=== PATIENT | female | born 1950 | race Caucasian/White ===

== ENCOUNTER 2025-05-28 16:15 | Inpatient (IN) | payer BC, MEDICARE ==
[~2025-05-28 16:15] MED LIST: Iopamidol-370 76% 500 ML MDV (1 ML CHARGE) ONE
[2025-05-28 17:32] LABS: #Basophils 0.06 10x3/uL (0.0-0.2); #Eosinophils 0.06 10x3/uL (0.0-0.7); #Monocytes 0.51 10x3/uL (0.11-0.59); #Neutrophils 4.07 10x3/uL (1.40-6.50); %Basophils 1.0 % (0.0-1.0); %Eosinophils 1.0 % (0.0-10.0); %Lymphocytes 22.8 % (21.0-51.0); %Monocytes 8.4 % (0.0-10.0); %Neutrophils 66.6 % (42.0-75.0); Hematocrit 38.3 % (36.0-47.0); Hemoglobin 13.1 g/dL (12.0-16.0); Mean Corpuscular Hemoglobin 32.2 pg (27.0-31.0); Mean Corpuscular Volume 94.1 fL (78.0-98.0); Platelet Count 229 10x3/uL (130-400); Red Blood Cell (RBC) Count 4.07 mill/uL (4.20-5.40); White Blood Cell (WBC) Count 6.10 10x3/uL (4.8-10.8)
[2025-05-28 17:55] LABS: ALT (SGPT) 15 U/L (Less than 34); AST (SGOT) 20 U/L (11-34); Albumin 3.6 g/dL (3.1-4.5); Alkaline Phosphatase 75 U/L (40-110); Anion Gap 14 mmol/L (10-20); BUN (Urea Nitrogen) 18 mg/dL (9.8-20.1); Bilirubin, Total 0.4 mg/dL (0.3-1.2); Calc. Creatinine Clearance 0 mL/min (70-130); Calcium 9.0 mg/dL (7.8-10.44); Carbon Dioxide 23 mmol/L (23-31); Chloride 106 mmol/L (98-107); Globulin 2.8 g/dL (2.4-3.5); Glucose 87 mg/dL (83-110); Potassium 4.2 mmol/L (3.5-5.1); Sodium 139 mmol/L (136-145)
[2025-05-28 17:58] LABS: Troponin I Less than 0.010 ng/mL (< 0.028)
[2025-05-28 21:27] LABS: Bacteria/HPF None Seen HPF (None Seen); CAUTI Indications for Culture Pelvic or flank pain; Glucose, Urine (Dipstick) Normal (Negative); Leukocyte Negative Leu/uL (Negative); Protein, Urine (Dipstick) Negative (Neg-Trace); RBC/HPF 0-3 HPF (0-3); Specific Gravity, Urine Greater than 1.050 (1.002-1.036); WBC/HPF 0-3 HPF (0-3)
[2025-05-28 21:28] LABS: Urine Culture Reflex No No
[2025-05-28] MEDS ORDERED: Ketorolac Tromethamine 30 MG (1 mL) VIAL ONE (21:57)
[2025-05-28] MEDS ORDERED: Ondansetron PF 4 MG/2 ML Vial IVP PRN (23:33)
[2025-05-28] MEDS ORDERED: Calcium Carbonate 500 MG ChewTAB PO PRN (23:33)
[2025-05-28] MEDS ORDERED: Acetaminophen 325 MG TAB PO PRN (23:33)
[2025-05-29 04:51] LABS: #Basophils 0.06 10x3/uL (0.0-0.2); #Eosinophils 0.11 10x3/uL (0.0-0.7); #Monocytes 0.54 10x3/uL (0.11-0.59); #Neutrophils 3.38 10x3/uL (1.40-6.50); %Basophils 1.1 % (0.0-1.0); %Eosinophils 2.0 % (0.0-10.0); %Lymphocytes 24.8 % (21.0-51.0); %Monocytes 9.9 % (0.0-10.0); %Neutrophils 62.0 % (42.0-75.0); Hematocrit 35.7 % (36.0-47.0); Hemoglobin 12.0 g/dL (12.0-16.0); Mean Corpuscular Hemoglobin 31.6 pg (27.0-31.0); Mean Corpuscular Volume 93.9 fL (78.0-98.0); Platelet Count 212 10x3/uL (130-400); Red Blood Cell (RBC) Count 3.80 mill/uL (4.20-5.40); White Blood Cell (WBC) Count 5.45 10x3/uL (4.8-10.8)
[2025-05-29 05:09] LABS: ALT (SGPT) 11 U/L (Less than 34); AST (SGOT) 17 U/L (11-34); Albumin 3.2 g/dL (3.1-4.5); Alkaline Phosphatase 62 U/L (40-110); Anion Gap 10 mmol/L (10-20); BUN (Urea Nitrogen) 19 mg/dL (9.8-20.1); Bilirubin, Total 0.7 mg/dL (0.3-1.2); Calc. Creatinine Clearance 0 mL/min (70-130); Calcium 8.8 mg/dL (7.8-10.44); Carbon Dioxide 27 mmol/L (23-31); Chloride 105 mmol/L (98-107); Globulin 2.6 g/dL (2.4-3.5); Glucose 78 mg/dL (83-110); Potassium 4.1 mmol/L (3.5-5.1); Sodium 138 mmol/L (136-145)
[2025-05-29 07:27] VITALS: BMI 19.1
[2025-05-29] MEDS: Gabapentin 300 MG CAP PO SCH (07:45)
[2025-05-29 11:31] VITALS: BP 96/69; TEMP 98
[2025-05-29 13:26] LABS: RBC Count-Automated (BF) 1578 /cu.mm; WBC/Nucleated-Auto (BF) 2249 /cu.mm
[2025-05-29 13:33] LABS: Fluid, Triglycerides 20.0 mg/dL (Not Available); Pleural Fluid, Amylase 107.0 U/L (Not Available); Pleural Fluid, Glucose 83.0 mg/dL; Pleural Fluid, LDH 657.0 U/L (Not Available); Pleural Fluid, Protein 3.9 g/dL
[2025-05-29 13:54] LABS: BF Segmented Neutrophils 13 %; Cell Count Non Hematic 13 %
[2025-05-29 14:18] LABS: Fluid, pH - Pleural Fld Greater than 7.500 (7.60 - 7.66)
== END 2025-05-29 14:41 | disposition home or self-care (01) | DRG 845 ==
LOC: ERS 16:15 → 2NO 21:35
PROVIDERS: ADMIT Student in an Organized Health Care Education/Training Program; ATTEND Student in an Organized Health Care Education/Training Program
PROC: 0W9B3ZZ Drainage of Left Pleural Cavity, Percutaneous Approach (ICD-10-PCS; principal; 2025-05-28)
DX: C80.1 Malignant (primary) neoplasm, unspecified (principal); E78.5 Hyperlipidemia, unspecified; J91.0 Malignant pleural effusion; Z66 Do not resuscitate; Z86.711 Personal history of pulmonary embolism; Z87.440 Personal history of urinary (tract) infections; Z98.890 Other specified postprocedural states; Z79.899 Other long term (current) drug therapy
CPT/HCPCS: 36415; 36416; 71045; 71275; 80053; 81001; 82150; 82945; 83605; 83615; 83880; 83986; 84157; 84478; 84484; 85025; 85060; 87116; 87206; 88112; 88305; 88341; 88342; 89051; 93005; 96374; J1642; J1885; Q9967

== ENCOUNTER 2025-06-06 13:15 | Outpatient (CLI) | payer BC | END 2025-06-06 13:16 | disposition home or self-care (01) | LOC: RAD 13:15 | PROVIDERS: ATTEND Internal Medicine Critical Care Medicine | DX: R06.00 Dyspnea, unspecified (principal); J90 Pleural effusion, not elsewhere classified | CPT/HCPCS: 71046 ==

== ENCOUNTER 2025-06-06 16:19 | Outpatient (CLI) | payer BC | END 2025-06-06 16:20 | disposition home or self-care (01) | LOC: LABBT 16:19 | PROVIDERS: ATTEND Student in an Organized Health Care Education/Training Program | DX: Z01.812 Encounter for preprocedural laboratory examination (principal); J91.0 Malignant pleural effusion | CPT/HCPCS: 80053; 85610; 85730; 86850; 86900; 86901 ==

== ENCOUNTER 2025-06-08 05:58 | Observation (INO) | payer BC ==
[2025-06-06 16:39] VITALS: BMI 18.8
[2025-06-06 17:20] LABS: INR-International Normal Ratio 1.1; Prothrombin Time 13.8 sec (12.0-14.7)
[2025-06-06 17:21] LABS: PTT 36.0 sec (22.9-36.1)
[2025-06-06 17:48] LABS: ALT (SGPT) 9 U/L (Less than 34); AST (SGOT) 18 U/L (11-34); Albumin 3.5 g/dL (3.1-4.5); Alkaline Phosphatase 67 U/L (40-110); Anion Gap 19 mmol/L (10-20); BUN (Urea Nitrogen) 33 mg/dL (9.8-20.1); Bilirubin, Total 0.5 mg/dL (0.3-1.2); Calc. Creatinine Clearance 0 mL/min (70-130); Calcium 10.0 mg/dL (7.8-10.44); Carbon Dioxide 25 mmol/L (23-31); Chloride 97 mmol/L (98-107); Globulin 3.7 g/dL (2.4-3.5); Glucose 101 mg/dL (83-110); Potassium 5.3 mmol/L (3.5-5.1); Sodium 136 mmol/L (136-145)
[2025-06-08] MEDS ORDERED: CEFAZOLIN 2 GM VIAL ONE (07:18)
[2025-06-08] MEDS ORDERED: PROPOFOL 20 ML ONE (07:23)
[2025-06-08] MEDS ORDERED: fentaNYL PF 100 MCG/2 ML SYRINGE ONE (07:24)
[2025-06-08] MEDS ORDERED: Lidocaine 1% PF 5 ML VIAL ONE (08:03)
[2025-06-08] MEDS ORDERED: Rocuronium Bromide 10 MG/ML (10ML VIAL) ONE (08:03)
[2025-06-08] MEDS ORDERED: Ondansetron PF 4 MG/2 ML Vial ONE (08:03)
[2025-06-08] MEDS ORDERED: PHENYLEPHRINE-NS 100 MCG/ML 10 ML SYRINGE ONE (08:09)
[2025-06-08] MEDS ORDERED: SUGAMMADEX SODIUM 200 MG/2 ML VIAL ONE (08:18)
[2025-06-08] MEDS ORDERED: Ondansetron PF 4 MG/2 ML Vial IVP PRN (08:30)
[2025-06-08] MEDS ORDERED: hydrALAZINE 20 MG/ML VIAL SLOW IVP PRN (08:30)
[2025-06-08] MEDS ORDERED: Simethicone Chewable 80 MG TAB PO PRN (09:23)
[2025-06-08] MEDS ORDERED: Bisacodyl 10 MG SUPP PR PRN (09:24)
[2025-06-08] MEDS: Acetaminophen 325 MG TAB PO PRN (21:48)
[2025-06-08] MEDS: Senokot S 8.6-50 MG TAB PO SCH (21:49)
[2025-06-09] MEDS: CEFAZOLIN 2 GM VIAL ONE (03:25)
[2025-06-09 05:56] VITALS: TEMP 98
[2025-06-09 09:30] VITALS: BP 94/59
== END 2025-06-09 10:50 | disposition home or self-care (01) ==
LOC: SDC 05:58 → SURG B 08:30 → EDSTATUS 16:30
PROVIDERS: ADMIT Student in an Organized Health Care Education/Training Program; ATTEND Student in an Organized Health Care Education/Training Program
PROC: 0BBP4ZX Excision of Left Pleura, Percutaneous Endoscopic Approach, Diagnostic (ICD-10-PCS; principal; 2025-06-08)
PROC: 0W1 Anatomical Regions, General, Bypass (ICD-10-PCS; 2025-06-08)
DX: C38.4 Malignant neoplasm of pleura (principal); J91.0 Malignant pleural effusion; E78.5 Hyperlipidemia, unspecified; Z87.891 Personal history of nicotine dependence
CPT/HCPCS: 36430; 71045; 80053; 85610; 85730; 86850; 86900; 86901; 88305; 88341; 88342; A7048; J0169; J0665; J1100; J2405; J2704

== ENCOUNTER 2025-06-10 10:15 | Outpatient (CLI) | payer BC | END 2025-06-10 10:16 | disposition home or self-care (01) | LOC: PET 10:15 | PROVIDERS: ATTEND Internal Medicine Critical Care Medicine | DX: C80.1 Malignant (primary) neoplasm, unspecified (principal); R91.8 Other nonspecific abnormal finding of lung field; C78.2 Secondary malignant neoplasm of pleura | CPT/HCPCS: 78815; A9552 ==

== ENCOUNTER 2025-06-22 13:10 | Outpatient (CLI) | payer BC | END 2025-06-22 13:11 | disposition home or self-care (01) | LOC: RAD 13:10 | PROVIDERS: ATTEND Student in an Organized Health Care Education/Training Program | DX: J98.11 Atelectasis (principal); J91.0 Malignant pleural effusion | CPT/HCPCS: 71046 ==

== ENCOUNTER 2025-06-28 09:38 | Outpatient (CLI) | payer BC | END 2025-06-28 09:39 | disposition home or self-care (01) | LOC: SCSMRI 09:38 | PROVIDERS: ATTEND Internal Medicine Hematology & Oncology | DX: C34.32 Malignant neoplasm of lower lobe, left bronchus or lung (principal); I67.82 Cerebral ischemia; R90.82 White matter disease, unspecified; I73.9 Peripheral vascular disease, unspecified | CPT/HCPCS: 70553; 76376 ==